=== PATIENT | male | born 1960 | race Asian ===

== ENCOUNTER 2017-05-20 10:26 | Day surgery (SDC) | payer OTHER ==
[~2017-05-20] VITALS: Ht 170.2 cm; Wt 76.3 kg
[2017-05-20] VITALS (14 sets, daily range): BP systolic 130–166; BP diastolic 78–92; PULSE 75–82; RESP 16–22; Ht 170.2 cm; Wt 76.3 kg
[~2017-05-20 10:26] MED LIST: CEFAZOLIN 2 GM/50 ML (PMX) 50 ML IVPB ONE; CEFAZOLIN 2 GM/50 ML (PMX) 50 ML IVPB SCH; SOD CHLORIDE 0.9% 1,000 ML IV SCH
[2017-05-20] MEDS ORDERED: BUPIVACAINE 0.25% (MPF) 30 ML INJ ONE (12:05)
[2017-05-20] MEDS ORDERED: MIDAZOLAM 1 MG/ML 2 ML INJ ONE (12:28)
--- NOTE | 2017-05-20 12:59 | OPR ---
Date/Time of Note Date/Time of Note DATE: 05/20/17 TIME: 12:57 Operative Report Procedure Date: May 20, 2017 Preoperative Diagnosis right back mass Postoperative Diagnosis right back mass Operation/Procedure Performed 1. excision of right back mass 6 cm incision and 3 cm mass 2. localized adjacent tissue transfer with the use of skin flaps 12 sq cm defect 3. therapeutic injection of subcutaneous local anesthesia Surgeon see signature line [employer] Client Executive none Anesthesia Type: general Estimated Blood Loss: 0 - 10 ml's Transfusion none Specimen right back mass Grafts/Implants none Complications none Pt Condition Post Procedure: stable Indications This is a 56-year-old male with a right back mass. He requests surgical excision. Risks alternatives benefits and percent were discussed the patient. Patient's best understanding and consents to the operation. Procedure Description Patient is taken to the OR and prepped and draped in usual sterile fashion. Surgical timeout was performed. IV antibiotics given. Transverse incision was made with a 10 blade. Dissection Carrs carried down fairly deep into the subcutaneous tissues. The mass was identified and excised using cautery. There is good hemostasis. Due to large tissue defect localized adjacent tissue transfer with these of skin flaps was performed closure was made with inzorb absorbable skin stapler. Dry dressings were applied. Shi DE SOUZA May 20, 2017 12:59
[2017-05-20] MEDS ORDERED: HYDROCODONE/APAP (5/325) TAB PO ONE (13:00)
[2017-05-20] MEDS ORDERED: ONDANSETRON 4 MG INJ ONE (13:05)
[2017-05-20] MEDS ORDERED: CEFAZOLIN 1 GM INJ ONE (13:05)
[2017-05-20] MEDS ORDERED: LIDOCAINE 2% (SDV) 5 ML INJ ONE (13:05)
[2017-05-20] MEDS ORDERED: ETOMIDATE 20 MG INJ ONE (13:05)
--- NOTE | 2017-05-20 13:12 | RADRPT ---
PROCEDURE: XR Chest. CLINICAL INDICATION: Chest pain, preop TECHNIQUE: Single frontal view of the chest was obtained COMPARISON: None FINDINGS: The patient has had previous median sternotomy valve replacement. The cardiac silhouette is unremarkable. There is minimal discoid atelectasis in the right lower lobe. The lungs are otherwise clear. There is no pleural effusion or pneumothorax. The bones and soft tissue show no acute change. IMPRESSION: Minimal discoid atelectasis in the right lower lobe. Otherwise, no significant abnormalities are tasha ntified. RPTAT:AAJJ Physician Adelita Date Time Electronically viewed and signed by Physician Adelita on 05/20/2017 13:12 /
[2017-05-20] MEDS ORDERED: MEPERIDINE 25 MG INJ IV PRN (13:30)
[2017-05-20] MEDS ORDERED: ONDANSETRON 4 MG INJ IV PRN (13:30)
[2017-05-20] MEDS ORDERED: DIPHENHYDRAMINE 50 MG INJ IV PRN (13:30)
[2017-05-20] MEDS ORDERED: HYDROmorphONE (0.2 MG/ML) 10ML SYG IV PRN ×2 (13:30)
[2017-05-20] MEDS ORDERED: FENTAnyl 50 MCG/ML VIAL IV PRN (13:30)
--- NOTE | 2017-05-20 20:35 | RADRPT ---
Vent Rate: 76 bpm RR Interval: 0 msec [place] Interval: 186 msec QRS Duration: 102 msec QT Interval: 416 msec QTC Interval: 468 msec P-R-T Shelley: 60 - 27 - 70 degrees Sinus rhythm with occasional premature ventricular complexes Possible Left atrial enlargement Septal infarct , age undetermined Abnormal ECG Electronically Signed By: Marquez Stewart [id number]
== END 2017-05-20 15:30 | disposition home or self-care (01) ==
LOC: SDS 10:26
PROVIDERS: ATTEND Surgery
DX: D17.1 Benign lipomatous neoplasm of skin and subcutaneous tissue of trunk (principal); I25.10 Atherosclerotic heart disease of native coronary artery without angina pectoris; E11.9 Type 2 diabetes mellitus without complications
CPT/HCPCS: 14001; 71010; 82962; 88307; 93005; J0690; J2250; J2405; J3010; Z7512; Z7610